=== PATIENT | male | born 1960 ===

== ENCOUNTER 2016-09-30 11:31 | Outpatient (CLI) | payer MEDICARE, OTHER ==
[2016-09-30 13:00] LABS: ALT (SGPT) 18 U/L (0-55); AST (SGOT) 13 U/L (5-34); Albumin 4.1 g/dL (3.5-5.0); Alkaline Phosphatase 62 U/L (40-150); Anion Gap 16 mmol/L (10-20); BUN (Urea Nitrogen) 18 mg/dL (8.4-25.7); Bilirubin, Total 0.6 mg/dL (0.2-1.2); Calc. Creatinine Clearance 0 mL/min (70-130); Calcium 9.3 mg/dL (7.8-10.44); Carbon Dioxide 23 mmol/L (22-29); Cardiac Risk 5.1 (Less than 4.5); Chloride 102 mmol/L (98-107); Cholesterol 189 mg/dL (< 200 Desired); Estimated GFR-MDRD 69; Globulin 3.8 g/dL (2.4-3.5); Glucose 288 mg/dL (70-105); HDL Cholesterol 37 mg/dL (>60 Neg Risk); LDL Cholesterol, Calculated 126 mg/dL; Potassium 4.4 mmol/L (3.5-5.1); Protein, Total 7.9 g/dL (6.0-8.3); Sodium 137 mmol/L (136-145); Triglycerides 130 mg/dL (Less than 150)
[2016-09-30 13:43] LABS: Band 2 % (5-11); Eosinophils 3 % (0-10); Hemoglobin 16.5 g/dL (14.0-18.0); Lymphocytes 30 % (21-51); MDiff Complete? YES; Mean Corpuscular HGB CONC 33.4 g/dL (32.0-36.0); Mean Corpuscular Hemoglobin 29.3 pg (27.0-31.0); Mean Corpuscular Volume 87.8 fl (80.0-94.0); Mean Platelet Volume 10.4 fL (7.4-10.4); Monocytes 8 % (0-10); Neutrophil 56 % (42-75); Platelet Count 197 thou/uL (130-400); RBC Distribution Width 12.6 % (11.5-14.5); Reactive Lymphocytes 1 % (0-10); Red Blood Cell (RBC) Count 5.61 mill/uL (4.70-6.10); White Blood Cell (WBC) Count 5.8 thou/uL (4.8-10.8)
== END 2016-09-30 11:32 ==
LOC: HPCALD 11:31
PROVIDERS: ATTEND Physician Assistant
DX: Z12.5 Encounter for screening for malignant neoplasm of prostate (principal); E11.9 Type 2 diabetes mellitus without complications; I10 Essential (primary) hypertension
CPT/HCPCS: 36415; 80053; 80061; 85007; 85027; G0103